=== PATIENT | female | born 1965 ===

== ENCOUNTER 2017-09-16 14:09 | Emergency (ER) | payer MEDICAID, OTHER ==
[2017-09-16 14:20] VITALS: BMI 26.4
[2017-09-16 14:23] VITALS: TEMP 98.4; O2SAT 99
[2017-09-16] MEDS ORDERED: Bacitracin 500 Units/gm Oint Foilpak UD TOP STA (15:37)
[2017-09-16] MEDS ORDERED: Lidocaine 2% Inj (20ml) INFIL STA (15:37)
[2017-09-16] MEDS ORDERED: Tetanus/Diphtheria Toxoids 0.5 ml Syringe IM ONE ×2 (15:38→15:52)
--- NOTE | 2017-09-16 15:38 | C.PDOC ---
History Of Present Illness 52 y/o female presents to the ED for evaluation of a laceration to her left finger, sustained just prior to arrival. 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 Tetanus is not up to date. No changes in sensation. Time Seen by Provider: 09/16/17 14:45 Chief Complaint (Nursing): Abnormal Skin Integrity History Per: Patient History/Exam Limitations: no limitations Onset/Duration Of Symptoms: Mins Current Symptoms Are (Timing): Still Present Past Medical History Reviewed: Historical Data, Nursing Documentation, Vital Signs Vital Signs: Last Vital Signs Temp 98.4 F 09/16/17 17:35 Pulse 63 09/16/17 17:35 Resp 18 09/16/17 17:35 BP 136/86 09/16/17 17:35 Pulse Ox 99 09/16/17 18:30 - Medical History PMH: No Chronic Diseases Surgical History: Cholecystectomy, Family History: States: Unknown Family Hx - Social History Hx Tobacco Use: No Hx Alcohol Use: No Hx Substance Use: No - Immunization History Hx Tetanus Toxoid Vaccination: No Hx Influenza Vaccination: No Hx Pneumococcal Vaccination: No Review Of Systems Except As Marked, All Systems Reviewed And Found Negative. Skin: Positive for: Lesions (to left 3rd finger) Neurological: Negative for: Weakness, Numbness Physical Exam - Physical Exam Appears: Non-toxic, No Acute Distress Skin: Normal Color, Warm, Dry, Other (3.5 cm L-shaped laceration to left 3rd digit, no active bleeding) Chest: Symmetrical Respiratory: No Accessory Muscle Use Extremity: Capillary Refill (< 2 sec), No Deformity, No Swelling Pulses: Left Radial: Normal, Right Radial: Normal Neurological/Psych: Oriented x3, Normal Speech ED Course And Treatment O2 Sat by Pulse Oximetry: 99 (RA) Pulse Ox Interpretation: Normal Progress Note: Tetanus booster given in the ED. Laceration repaired, tolerated well by patient. Bacitracin and sterile dressing applied. Patient counseled regarding wound care instructions and advised to return in 2 days for wound check. Laceration - Laceration Repair left finger Wound Length (In cm): 3.5 Description Of Wound: Linear (L-shaped) Wound Cleansed With: Sterile Saline Anesthesia: Lidocaine 2% Wound Examination: Irrigated With Saline Wound Closure: Suture (x6) Suture Technique And Material Used: Nylon (4:0) Wound Complexity: Simple Disposition Counseled Patient/Family Regarding: Diagnosis, Need For Followup - Disposition Disposition: HOME/ ROUTINE Disposition Time: 17:26 Condition: STABLE Additional Instructions: Follow up with your PMD within 1-2 days. Return to ED for wound check in 2 days. Suture removal in 12 days. Return to Ed immediately if feel worse. Prescriptions: traMADol/Acetaminophen [Ultracet 325 MG-37.5 MG] 1 tab PO Q6 PRN #10 tab PRN Reason: Pain Instructions: Laceration Repair With Stitches (DC) Forms: Family Pet (Romansh), Work Excuse Print Language: PANAMANIAN - Clinical Impression Clinical Impression: Finger laceration - PA / LEAD WELDER / Resident Statement MD/DO has reviewed & agrees with the documentation as recorded. - Scribe Statement The provider has reviewed the documentation as recorded by the Scribe (Kayy Kimble) All medical record entries made by the Scribe were at my direction and personally dictated by me. I have reviewed the chart and agree that the record accurately reflects my personal performance of the history, physical exam, medical decision making, and the department course for this patient. I have also personally directed, reviewed, and agree with the discharge instructions and disposition.
[2017-09-16] MEDS ORDERED: Lidocaine 2% MPF (5 ml) Inj ONE (15:51)
[2017-09-16] MEDS ORDERED: Bacitracin 500 Units/gm Oint Foilpak UD ONE (15:52)
[2017-09-16 17:36] VITALS: BP 136/86; PULSE 63; RESP 18
== END 2017-09-16 17:39 | disposition home or self-care (01) ==
LOC: C.ER 14:09
DX: S61.213A Laceration without foreign body of left middle finger without damage to nail, initial encounter (principal); W26.0XXA Contact with knife, initial encounter; Y93.G3 Activity, cooking and baking; Y92.89 Other specified places as the place of occurrence of the external cause; Y99.0 Civilian activity done for income or pay; Z23 Encounter for immunization